=== PATIENT | male | born 1970 | race Caucasian/White ===

== ENCOUNTER 2018-12-29 14:12 | Emergency (ER) | payer OTHER ==
[~2018-12-29] VITALS: Ht 167.6 cm; Wt 68.0 kg
[2018-12-29] MEDS ORDERED: ZANTAC 150MG T150 MG PO (14:27)
[2018-12-29] MEDS ORDERED: NORCO 5-325 TA1 EAC1 PO (15:30)
[2018-12-29] MEDS ORDERED: IBUPROFEN 800800 M1 PO (15:30)
[2018-12-29 15:43] VITALS: BP 130/78
== END 2018-12-29 15:44 | disposition home or self-care (01) ==
LOC: M.ERS 14:12
DX: S92.002A Unspecified fracture of left calcaneus, initial encounter for closed fracture (principal); Z79.899 Other long term (current) drug therapy; X58.XXXA Exposure to other specified factors, initial encounter; Y93.39 Activity, other involving climbing, rappelling and jumping off; Y92.89 Other specified places as the place of occurrence of the external cause; Y99.8 Other external cause status